=== PATIENT | male | born 1990 | race Caucasian/White ===

== ENCOUNTER 2024-08-10 16:31 | Emergency (ER) | payer BC, SELFPAY ==
[2024-08-10 16:41] VITALS: BP 136/97; PULSE 108; RESP 16; TEMP 36.3; O2SAT 100
--- NOTE | 2024-08-10 17:13 | ED_ITS ---
HPI - Extremity Injury (Lower) General Chief Complaint: Extremity Injury, Lower Stated Complaint: RT Foot / he stepped on a nail Time Seen by Provider: 08/10/24 17:13 Source: patient Mode of arrival: ambulatory Limitations: no limitations History of Present Illness HPI Narrative: 33-year-old male stepped on nail 3 days ago. Puncture wound to right great toe. No signs of infection. Range of motion and distal neurovascularly intact. patient here for tetanus to be updated. All systems reviewed and negative except as noted above. Related Data Allergies Allergy/AdvReac Type Severity Reaction Status Date / Time No Known Allergies Allergy Verified 08/10/24 17:07 Review of Systems Review of Systems: CONSTITUTIONAL: Denies fever, chills, or sweats. EYES: Denies visual changes, redness, or discharge. ENT: Denies rhinorrhea, congestion, sore throat, or otalgia. CARDIOVASCULAR: Denies chest pain, palpitations, or edema. RESPIRATORY: Denies cough or dyspnea. GASTROINTESTINAL: Denies abdominal pain, nausea, vomiting, or diarrhea. GENITOURINARY: Denies dysuria or hematuria. SKIN: Denies rash or itching. reports puncture wound to right great toe MUSCULOSKELETAL: Denies back pain, joint pain, or myalgia. NEUROLOGIC: Denies headache, numbness, or weakness. PSYCHIATRIC: Denies anxiety or depression. All other systems reviewed are negative, except as documented in HPI. PMFSH Comments At time of signature, agree with nursing past medical, surgical, social and family history. There is no relevant family history pertinent to the presenting complaint. Exam Narrative: GENERAL: This is a well-nourished, well-developed patient, in no apparent distress. HEAD: normocephalic, atraumatic. EYES: PERRL. Sclera clear/white. Vision is grossly intact. EARS: External ears normal NOSE: External nose normal NECK: Neck supple, non-tender without lymphadenopathy, masses or thyromegaly. CARDIOVASCULAR: Regular rate and rhythm without murmurs, gallops, or rubs. RESPIRATORY: Clear to auscultation. Breath sounds equal bilaterally. No wheezes, rales, or rhonchi. SKIN: warm, Dry, intact with no suspicious lesions or rash, good texture and turgor. healed, scabbed puncture wound to plantar aspect of right great toe without any signs of infection. NEURO: awake, alert, and oriented to person, place and time. There were no obvious focal neurologic abnormalities. EXTREMITIES: No joint tenderness, effusion, or edema noted. Course Course Level of Care: Express Care Visit Vital Signs Vital signs: Vital Signs Temperature 36.3 C L 08/10/24 16:41 Pulse Rate 108 H 08/10/24 16:41 Respiratory Rate 16 08/10/24 16:41 Blood Pressure 136/97 H 08/10/24 16:41 Pulse Oximetry 100 08/10/24 16:41 Oxygen Delivery Room Air 08/10/24 16:41 Temperature 36.3 C L 08/10/24 16:41 Pulse Rate 108 H 08/10/24 16:41 Respiratory Rate 16 08/10/24 16:41 Blood Pressure 136/97 H 08/10/24 16:41 Pulse Oximetry 100 08/10/24 16:41 Oxygen Delivery Room Air 08/10/24 16:41 Review MDM - Extremity Injury (Lower) MDM Narrative Medical decision making narrative: patient here for tetanus update. Puncture wound to right great toe is healing well, no signs of infection. Please be advised this is a medical document. It is intended for vzqm-ru-ejig communication. It is written in medical language and may contain unfamiliar abbreviations or verbiage. Medical documents are intended to carry relevant information, facts as evident, and the clinical opinion of the practitioner at the time of the encounter. This report may have been done utilizing a voice recognition system. Attempts have been made to correct errors. However, there may be uncorrected grammatical, spelling, and recognition errors present. The file time of this note does not necessarily represent the time of service. Discharge Plan Discharge Clinical Impression: Puncture wound of foot, right Qualifiers: Encounter type: initial encounter Qualified Code(s): S91.331A - Puncture wound without foreign body, right foot, initial encounter Patient Disposition: Home Condition: Stable Instructions: Diphtheria/Acellular Pertussis/Tetanus Booster Vaccine (By injection), Puncture Wound in the Foot (ED) Additional Instructions: The wound to your right foot is well-appearing. There are no signs of infection. Continue to keep clean and dry. Your tetanus was updated today. See your primary care physician as needed. Patient Language: Korean Follow-up/Referrals: PHYSICIAN,CLINICAL RESEARCH PHYSICIAN [Primary Care Provider] - Time of Disposition: 17:18
[2024-08-10] MEDS: TETANUS,DIPHTHERIA,AC PERTUSSIS ADULT (0.5 ML) BOOSTRIX IM (17:27)
--- OUTSIDE RECORDS SUMMARY | 2024-08-10 18:22 | XMS_ITS | Encounter Summary ---
Author Organization [facility] Address 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
--- OUTSIDE RECORDS SUMMARY | 2024-08-10 18:22 | XMS_ITS | Encounter Summary ---
Author Organization [facility] Address [address] [place] [address] Care Team Providers Care Pressurization Mechanic Name Role Phone Christie Baires MD Primary Care Provider [phone] Encounter Details Date Type Department Care Team (Late st Contact Info) Description 03/31/2007 Outpatient Historical [address] [place] [phone] Christie Baires MD [address] [place] [phone] Social History Tobacco Use Types Packs/Day Years Used Date Smoking Tobacco: Never Assessed Sex and Gender Information Value Date Recorded Sex Assigned at Not on file Legal Sex Male 4:32 AM TECHNOLOGY APPLICATIONS CONSULTANT Gender Identity Not on file Sexual Orientation Not on file documented as of this encounter Plan of Treatment Not on file documented as of this encounter Visit Diagnoses Not on filedocumented in this encounter Care Teams Pressurization Mechanic Relationship Specialty Start Date End Date Christie Baires MD [address] [place], [place] [address] [phone] PCP - General 05/22/06 09/18/12 documented as of this encounter
--- OUTSIDE RECORDS SUMMARY | 2024-08-10 18:22 | XMS_ITS | Encounter Summary ---
Author Organization [facility] Address 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
--- OUTSIDE RECORDS SUMMARY | 2024-08-10 18:22 | XMS_ITS | Encounter Summary ---
Author Organization [facility] Address 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
--- OUTSIDE RECORDS SUMMARY | 2024-08-10 18:22 | XMS_ITS | Clinical Summary ---
Author Organization [facility] Address [address] [place] [address] Care Team Providers Care Division Superintendent Name Role Phone Oswaldo Brown MD Primary Care Provider [phone] Source Comments [facility],non-owned Affiliates and Associated Physician Practices is amultiple site organization consisting of ambulatory clinics and hospital sitesin [place], [place], [place] and [place]. This disclosure is being madepursuant to the Care Everywhere program and may not contain all information available regarding this patient. Last updated 18.[employer] [facility] Allergies No known active allergies Medications * Be aware that medications may not be up to date on this document. Alwaysverify current medications with the patient. HYDROcodone-acet aminophen (NORCO) 5-325 MG tablet Take 1 tablet by mouth every 6 hours as needed for Pain 8 tablet 12/04/2018 Active Active Problems Problem Noted Date Diagnosed Date Abdominal pain, right lower quadrant 05/24/2008 Social History Tobacco Use Types Packs/Day Years Used Date Smoking Tobacco: Never Smokeless Tobacco: Never Alcohol Use Standard Drinks/Week Comments No 0 (1 standard drink = 0.6 oz pur e alcohol) Sex and Gender Information Value Date Recorded Sex Assigned at Not on file Legal Sex Male 4:33 AM FORTUNE COOKIE MAKER Gender Identity Not on file Sexual Orientation Not on file Last Filed Vital Signs Vital Sign Reading Time Taken Comments Blood Pressure 133/93 12/04/2018 10:13 AM CDT Pulse 60 12/04/2018 10:13 AM CDT Temperature 36.8 C (98.2 F) 12/04/2018 10:13 AM CDT Respiratory Rate 16 12/04/2018 10:1 3 AM CDT Oxygen Saturation 100% 12/04/2018 10: 13 AM CDT Inhaled Oxygen Concentration 100% 12/2008 10:14 PM FORTUNE COOKIE MAKER Weight 83.4 kg (183 lb 12.8 oz) 12/04/2018 6:36 AM CDT Height 182.9 cm (6') 12/04/2018 6:36 AM CDT Body Mass Index 24.93 12/04/2018 6:36 AM CDT Plan of Treatment Health Maintenance Due Date Last Done Comments HIV SCREENING 11/05/2006 HEPATITIS C SCREENING 11/01/2009 DTAP/TDAP/TD VACCINES (1 - Tdap) 11/05/2010 HEPATITIS B VACCINE (1 of 3 - 19+ 3-dose series) 11/05/2010 COVID-19 VACCINE (1 - 2023-2 5 season) 2023 DEPRESSION SCREENING 04/15/2024 INFLUENZA VACCINE (Season Ended) 2024 ZOSTER VACCINE (1 of 2) 11/05/2041 HIB VACCINE Aged Out No longer eligi ble based on patient's age to complete this topic HPV VACCINE Aged Out No longer eligi ble based on patient's age to complete this topic MENINGOCOCCAL (Group B) VACC INE SHARED DECISION-MAKING Aged Out No longer eligibl e based on patient's age to complete this topic MENINGOCOCCAL GROUPS A/C/Y/W VACCINE Aged Out No longer eligible b ased on patient's age to complete this topic PNEUMOCOCCAL VACCINE Aged Out No long er eligible based on patient's age to complete this topic Insurance [employer] Advance Directives * Full Code (Latest Code Status on File) Date Activated Date Inactivated Comments 05/24/2008 10:07 PM 05/25/2008 11:16 PM Care Teams Division Superintendent Relationship Specialty Start Date End Date Oswaldo Brown MD [address] [address] [place] [address] PCP - General Family Medicine 11/26/18
--- OUTSIDE RECORDS SUMMARY | 2024-08-10 18:22 | XMS_ITS | Encounter Summary ---
Author Organization [facility] Address 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
--- OUTSIDE RECORDS SUMMARY | 2024-08-10 18:22 | XMS_ITS | Encounter Summary ---
Author Organization [facility] Address 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
--- OUTSIDE RECORDS SUMMARY | 2024-08-10 18:22 | XMS_ITS | Encounter Summary ---
Author Organization [facility] Address [address] [place] [address] Care Team Providers Care Water Attendant Name Role Phone Christie Baires MD Primary Care Provider Encounter Details Date Type Department Care Team (Late st Contact Info) Description 10/23/2004 Outpatient Historical [address] [place] [phone] Christie Baires MD [address] [place] [phone] Social History Tobacco Use Types Packs/Day Years Used Date Smoking Tobacco: Never Assessed Sex and Gender Information Value Date Recorded Sex Assigned at Not on file Legal Sex Male 4:32 AM TELEPHONE SURVEYOR Gender Identity Not on file Sexual Orientation Not on file documented as of this encounter Plan of Treatment Not on file documented as of this encounter Visit Diagnoses Not on filedocumented in this encounter Care Teams Water Attendant Relationship Specialty Start Date End Date Christie Baires MD [address] [place], [place] [address], [place] [phone] PCP - General 05/22/06 09/18/12 documented as of this encounter
--- OUTSIDE RECORDS SUMMARY | 2024-08-10 18:22 | XMS_ITS | Encounter Summary ---
Author Organization [facility] Address 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
--- OUTSIDE RECORDS SUMMARY | 2024-08-10 18:22 | XMS_ITS | Clinical Summary ---
Author Organization [facility] Address [address] [place] [address] Care Team Providers Care Underwear Trimmer Name Role Phone No, Physician Primary Care Provider [phone] Allergies No known active allergies Medications amLODIPine (NORVASC) 10 mg tabletIndications :Essential hypertension Take 1 tablet (10 mg total) by mouth daily 30 tablet 11 06/10/2023 Active Active Problems Problem Noted Date Diagnosed Date Family history of ASCVD 01/19/2024 Atypical chest pain 06/10/2023 Essential hypertension 06/10/2023 Surgical History Surgery Date Site/Laterality Comments APPENDECTOMY 04/15/2008 Medical History Medical History Date Comments Hypertension Social History Tobacco Use Types Packs/Day Years Used Date Smoking Tobacco: Never Smokeless Tobacco: Never Tobacco Cessation:Counseling Given: Not Answered Personal Safety Answer Date Recorded Getting School Help Needed Not on file 06/10 Sex and Gender Information Value Date Recorded Sex Assigned at Not on file Legal Sex Male 3:22 PM MANAGER LIFE SCIENCES Gender Identity Not on file Sexual Orientation Not on file Obstetrics History Last Filed Vital Signs Vital Sign Reading Time Taken Comments Blood Pressure 118/82 10/15/2023 3:30 PM CDT Pulse 68 10/15/2023 3:30 PM CDT Temperature 36.7 C (98.1 F) 02/16/2023 10:26 PM CDT Respiratory Rate 12 06/27/2023 10:40 AM CDT Oxygen Saturation 99% 10/15/2023 3:30 PM CDT Inhaled Oxygen Concentration - - Weight 86.6 kg (191 lb) 10/15/2023 3:30 PM CDT Height 182.9 cm (6') 10/15/2023 3:30 PM CDT Body Mass Index 25.9 10/15/2023 3:30 PM CDT Plan of Treatment Health Maintenance Due Date Last Done Comments Depression Screening 1991 Hepatitis C Screening 1991 Varicella Vaccines (2 of 2 - 2-dose childhood series) 02/14/1999 11/22/1998 DTaP/Tdap/Td Vaccine (6 - Tdap) 10/24/2004 10/23/2004, 08/05/1996, 05/29/1993, Additional history exists Regular Well Visit/Exam 18-64 11/05/2009 Influenza Vaccine (Season Ended) 2024 02/22/2006 Hepatitis B Screening Completed 08/16/1992 , 1991, 1991 HPV Vaccines Aged Out No longer eligi ble based on patient's age to complete this topic Pneumococcal vaccine <65 Aged Out No longer eligible based on patient's age to complete this topic [place] Care Teams Underwear Trimmer Relationship Specialty Start Date End Date No, Physician PCP - General 02/16/23
--- OUTSIDE RECORDS SUMMARY | 2024-08-10 18:22 | XMS_ITS | Encounter Summary ---
Author Organization [facility] Address 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
--- OUTSIDE RECORDS SUMMARY | 2024-08-10 18:22 | XMS_ITS | Encounter Summary ---
Author Organization [facility] Address [address] [place] [address] Care Team Providers Care Office Machines Wirer Name Role Phone Christie Baires MD Primary Care Provider [phone] Encounter Details Date Type Department Care Team (Late st Contact Info) Description 05/22/2006 Outpatient Historical [address] [place] [phone] Christie Baires MD [address] [place] [phone] Social History Tobacco Use Types Packs/Day Years Used Date Smoking Tobacco: Never Assessed Sex and Gender Information Value Date Recorded Sex Assigned at Not on file Legal Sex Male 4:32 AM TELECOMMUNICATION 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
--- OUTSIDE RECORDS SUMMARY | 2024-08-10 18:22 | XMS_ITS | Encounter Summary ---
Author Organization [facility] Address [address] [place] [address] Care Team Providers Care Forest Nursery Worker Name Role Phone Christie Baires MD Primary Care Provider [phone] Encounter Details Date Type Department Care Team (Late st Contact Info) Description 11/22/1998 Outpatient Historical [address] [place] [phone] Christie Baires MD [address] [place] [phone] Social History Tobacco Use Types Packs/Day Years Used Date Smoking Tobacco: Never Assessed Sex and Gender Information Value Date Recorded Sex Assigned at Not on file Legal Sex Male 4:32 AM FOOT PRESS OPERATOR Gender Identity Not on file Sexual Orientation Not on file documented as of this encounter Plan of Treatment Not on file documented as of this encounter Visit Diagnoses Not on filedocumented in this encounter Care Teams Forest Nursery Worker Relationship Specialty Start Date End Date Christie Baires MD [address] [place], [place] [address], [place] [address] PCP - General 05/22/06 09/18/12 documented as of this encounter
--- OUTSIDE RECORDS SUMMARY | 2024-08-10 18:22 | XMS_ITS | Encounter Summary ---
Author Organization [facility] Address [address] [place] [address] Care Team Providers Care Head Baker Name Role Phone Christie Baires MD Primary Care Provider [phone] Encounter Details Date Type Department Care Team (Late st Contact Info) Description 03/07/2005 Outpatient Historical [address] [place] [phone] Christie Baires MD [address] [place] [phone] Social History Tobacco Use Types Packs/Day Years Used Date Smoking Tobacco: Never Assessed Sex and Gender Information Value Date Recorded Sex Assigned at Not on file Legal Sex Male 4:32 AM INSPECTOR MULTIFOCAL LENS Gender Identity Not on file Sexual Orientation Not on file documented as of this encounter Plan of Treatment Not on file documented as of this encounter Visit Diagnoses Not on filedocumented in this encounter Care Teams Head Baker Relationship Specialty Start Date End Date Christie Baires MD [address] [place] [phone] PCP - General 05/22/06 09/18/12 documented as of this encounter
--- OUTSIDE RECORDS SUMMARY | 2024-08-10 18:22 | XMS_ITS | Encounter Summary ---
Author Organization [facility] Address [address] [place] [address] Care Team Providers Care Seafood Technology Specialist Name Role Phone Christie Baires MD Primary Care Provider Encounter Details Date Type Department Care Team (Late st Contact Info) Description 11/26/2003 Outpatient Historical [address] [place] [phone] Christie Baires MD [address] [place] [phone] Social History Tobacco Use Types Packs/Day Years Used Date Smoking Tobacco: Never Assessed Sex and Gender Information Value Date Recorded Sex Assigned at Not on file Legal Sex Male 4:32 AM EMERGENCY ROOM REGISTERED NURSE Gender Identity Not on file Sexual Orientation Not on file documented as of this encounter Plan of Treatment Not on file documented as of this encounter Visit Diagnoses Not on filedocumented in this encounter Care Teams Seafood Technology Specialist Relationship Specialty Start Date End Date Christie Baires MD [address] [place], [place] [address] [phone] PCP - General 05/22/06 09/18/12 documented as of this encounter
--- OUTSIDE RECORDS SUMMARY | 2024-08-10 18:22 | XMS_ITS | Clinical Summary ---
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 8.5 Gram 0 Active Active Problems Problem Noted Date Diagnosed Date Abdominal pain, right lower quadrant 05/24/2008 Immunizations Immunization Administration Dates Next Due (INFANRIX)(6 WKS-6 YRS) DIPT HERIA, TETANUS TOXOIDS, AND ACCELLULAR PERTUSSIS VACCINE (DTAP), 0.5 ML IM 08/05/1996,05/29/1993,06/16/1992,04/27,01/12/1992 (IPOL)(6 WKS AND UP) POLIOVI DEL VACCINE, INACTIVATED (IPV), 3 DOSE, SUBCUT OR IM 08/05/1996,05/29/1993,04/27/1992,01/11 (M-M-R II/PRIORIX)(12 MO UP) MEASLES, MUMPS AND RUBELLA VIRUS VACCINE, 0.5 ML IM/SUBCUT 08/05/1996,03/23/1993 (TDVAX)(7 YRS UP) TETANUS AN D DIPHTHERIA TOXOIDS, ADSORBED (2 LF OF TETANUS TOXOID AND 2 LF OF DIPHTHERIA TOXOID), 0.5ML (PF), IM 10/23/2004 (VARIVAX)(12 MOS UP)VARICELL A VIRUS VACCINE (PF) 0.5 ML, SUB CUT 11/22/1998 HIB, Unspecified Formulation 03/23/1993, 06/16/1992,04/27/1992,01/11 Hepatitis A Vaccine 01/30/2007,02/22/2006 Hepatitis B Vaccine 08/16/1992,1991,1991 Influenza Seasonal Unspecifi ed Formulation IM 02/22/2006 Meningococcal ACWY Vaccine, Unspecified Formulation 01/31/2007 Family History Medical History Relation Name Comments Healthy Father Diabetes Maternal Grandfather Heart Disease Maternal Grandfather Healthy Maternal Grandmother Healthy Mother Ovarian Cancer Paternal Grandmother Healthy Sister Relation Name Status Comments Father Alive Maternal Grandfather Alive Maternal Grandmother Alive Mother Alive Paternal Grandfather Alive Paternal Grandmother Alive Sister Alive Social History Tobacco Use Types Packs/Day Years Used Date Smoking Tobacco: Never Smokeless Tobacco: Never Sex and Gender Information Value Date Recorded Sex Assigned at Not on file 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 Gender Identity Not on file Sexual Orientation Not on file Last Filed Vital Signs Vital Sign Reading Time Taken Comments Blood Pressure 172/109 05/21/2019 6:51 PM COMMERCIAL DRONE PILOT Pulse 105 05/21/2019 6:51 PM COMMERCIAL DRONE PILOT Temperature 37.8 C (100.1 F) 05/21/2019 6:51 PM COMMERCIAL DRONE PILOT Respiratory Rate 16 05/21/2019 6:51 PM COMMERCIAL DRONE PILOT Oxygen Saturation 98% 05/21/2019 6:51 PM COMMERCIAL DRONE PILOT Inhaled Oxygen Concentration - - Weight 81.6 kg (180 lb) 05/21/2019 6:51 PM COMMERCIAL DRONE PILOT Height 182.9 cm (6') 05/21/2019 6:51 PM COMMERCIAL DRONE PILOT Body Mass Index 24.41 05/21/2019 6:51 PM COMMERCIAL DRONE PILOT Plan of Treatment Health Maintenance Due Date Last Done Comments DTAP/TDAP/TD VACCINES (6 - Tdap) 10/24/2004 10/23/2004, 08/05/1996, 05/29/1993, Additional history exists INFLUENZA VACCINE (#1) 2023 02/22/2006 HEPATITIS B VACCINES Completed 08/16/1992, 1991, 1991 HPV VACCINES Aged Out No longer eligi ble based on patient's age to complete this topic Insurance [email or web address]
--- OUTSIDE RECORDS SUMMARY | 2024-08-10 18:22 | XMS_ITS | Encounter Summary ---
Author Organization [facility] Address 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
--- OUTSIDE RECORDS SUMMARY | 2024-08-10 18:23 | XMS_ITS | Referral Summary ---
Author Organization [facility] Address [address] [place] [address] Care Team Providers Care Special Warfare Combatant Crewman Name Role Phone No, Physician Primary Care Provider [phone] Allergies No known active allergies Medications amLODIPine (NORVASC) 10 mg tabletIndications :Essential hypertension Take 1 tablet (10 mg total) by mouth daily 30 tablet 11 06/10/2023 Active Active Problems Problem Noted Date Diagnosed Date Family history of ASCVD 01/19/2024 Atypical chest pain 06/10/2023 Essential hypertension 06/10/2023 Social History Tobacco Use Types Packs/Day Years Used Date Smoking Tobacco: Never Smokeless Tobacco: Never Tobacco Cessation:Counseling Given: Not Answered Personal Safety Answer Date Recorded Getting School Help Needed Not on file 06/10 Sex and Gender Information Value Date Recorded Sex Assigned at Not on file Legal Sex Male 3:22 PM 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
== END 2024-08-10 17:31 | disposition home or self-care (01) ==
PROVIDERS: Emergency Provider Nurse Practitioner Family
DX: S91.131A Puncture wound without foreign body of right great toe without damage to nail, initial encounter (principal); W45.0XXA Nail entering through skin, initial encounter; Z23 Encounter for immunization; I10 Essential (primary) hypertension
CPT/HCPCS: 90471; 90715; 99212; G0463